=== PATIENT | male | born 1990 ===

== ENCOUNTER 2022-03-22 02:30 | Emergency (ER) | payer BC ==
[2022-03-22] MEDS ORDERED: Acetaminophen/Butalbital/Caffeine 325-50-40 MG Tab PO ONE (14:23)
== END 2022-03-22 15:36 | disposition home or self-care (01) ==
LOC: MW.ED 02:30
DX: F07.81 Postconcussional syndrome (principal); W22.8XXA Striking against or struck by other objects, initial encounter
CPT/HCPCS: 70450; 99283; A9270